=== PATIENT | male | born 1980 | race Caucasian/White ===

== ENCOUNTER 2019-09-14 19:13 | Emergency (ER) | payer OTHER ==
[~2019-09-14] VITALS: Ht 188 cm; Wt 95.5 kg
[2019-09-14 19:17] VITALS: BP 124/70; TEMP 98.9
[2019-09-14 19:58] VITALS: PULSE 68
== END 2019-09-14 19:58 | disposition home or self-care (01) ==
LOC: COL.ER 19:13
DX: S61.012A Laceration without foreign body of left thumb without damage to nail, initial encounter (principal); W26.8XXA Contact with other sharp object(s), not elsewhere classified, initial encounter; Y92.009 Unspecified place in unspecified non-institutional (private) residence as the place of occurrence of the external cause